=== PATIENT | male | born 1980 | race Caucasian/White ===

== ENCOUNTER 2019-04-17 15:37 | Emergency (ER) | payer OTHER ==
[2019-04-17 15:45] VITALS: PULSE 77; TEMP 98.2; BMI 28.7
[2019-04-17] MEDS ORDERED: KETOROLAC TROMETHAMINE 30 MG/1 ML VIAL IM ONE (16:07)
[2019-04-17] MEDS ORDERED: KETOROLAC TROMETHAMINE 30 MG/1 ML VIAL ONE (16:19)
[2019-04-17 16:40] LABS: BASO % 0.4 % (0-2.0); HEMATOCRIT 42.3 % (35.4-49); HEMOGLOBIN 13.7 GM/dL (11.7-16.9); LYMPH % 4.7 % (8-40); MCH 26.2 pg (25.7-33.7); MCHC 32.4 g/dl (32.0-35.9); MEAN CELL VOLUME 80.9 fl (80-96); MEAN PLT VOLUME 8.1 fl (7.5-11.1); MONO % 1.7 % (3.8-10.2); NEUT % 93.2 % (42.8-82.8); PLATELET COUNT 296 K/MM3 (134-434); RBC 5.22 M/mm3 (4.00-5.60); RDW 14.3 % (11.9-15.9); WHITE BLOOD COUNT 11.5 K/mm3 (4.0-10.0)
[2019-04-17 16:45] LABS: EPI CELLS 0.8 /HPF (0-5/HPF); HYALINE CASTS 7 /lpf (0-8); URINE APPEARANCE TURBID; URINE BACTERIA 2.2 /hpf (NEGATIVE); URINE BILIRUBIN NEGATIVE (NEGATIVE); URINE COLOR YELLOW; URINE GLUCOSE (UA) NEGATIVE (NEGATIVE); URINE KETONE 1+ (NEGATIVE); URINE LEUK ESTERASE NEGATIVE (NEGATIVE); URINE NITRITE NEGATIVE (NEGATIVE); URINE PROTEIN NEGATIVE (NEGATIVE); URINE RBC 19 /hpf (0-4); URINE UROBILINOGEN 0.2 mg/dL (0.2-1.0); URINE WBC 1 /hpf (0-5)
--- NOTE | 2019-04-17 16:49 | PDOC ---
History of Present Illness - General Chief Complaint: Pain, Acute Stated Complaint: KIDNEY STONES History Source: Patient - History of Present Illness Initial Comments: 04/17/19 16:57 39 y/o/m here for right flank pain that started at 1100 today. He states the pain radiates from his right flank to his groin. He has a history of kidney stones and his pain feels the same as his past kidney stones. He feels nauseous and has vomited multiple times, no blood in his vomit. He had Oxycodone at home which was , he took 2 pills but vomited within 20 mins of taking it. He states he has been sweating a lot today as well and almost fainted once due to the pain. He denies any chest pain, SOB, fever, cough, or other symptoms. PMHx: Asthma SHx: denies Social: denies tobacco and alcohol use Past History - Past Medical History Allergies/Adverse Reactions: Allergies Allergy/AdvReac Type Severity Reaction Status Date / Time cashew nut Allergy Verified 04/17/19 15:47 peanut Allergy Verified 04/17/19 15:47 Home Medications: Ambulatory Orders Albuterol Sulfate Inhaler - [Ventolin Hfa Inhaler -] 2 puff IH DAILY 04/17/19 Fluticasone/Vilanterol [Breo Ellipta 100-25 Mcg INH] 1 each IH DAILY 04/17/19 Ibuprofen [Motrin -] 600 mg PO TID PRN #14 tablet 04/17/19 Ondansetron HCl [Zofran] 4 mg PO TID PRN #15 tablet 04/17/19 Asthma: Yes COPD: No Kidney Stones: Yes - Suicide/Smoking/Psychosocial Hx Smoking History: Never smoked Have you smoked in the past 12 months: No Information on smoking cessation initiated: No Hx Alcohol Use: No Drug/Substance Use Hx: No Review of Systems - Review of Systems Constitutional: Yes: Chills. No: Fever HEENTM: No: Nose Congestion Respiratory: No: Cough, Shortness of Breath Cardiac (ROS): No: Chest Pain, Lightheadedness ABD/GI: Yes: Nausea, Vomiting. No: Constipated, Diarrhea Musculoskeletal: Yes: Back Pain Integumentary: No: Rash Neurological: No: Headache Endocrine: Yes: Excessive Sweating *Physical Exam - Vital Signs Last Vital Signs Temp Pulse Resp BP Pulse Ox 98.2 F 77 22 H 130/89 98 04/17/19 15:41 04/17/19 15:41 04/17/19 15:41 04/17/19 15:41 04/17/19 15:41 - Physical Exam General Appearance: Yes: Severe Distress HEENT: positive: EOMI Neck: positive: Supple. negative: Tender Respiratory/Chest: positive: Normal Breath Sounds. negative: Accessory Muscle Use, Labored Respiration Cardiovascular: positive: Regular Rhythm, Regular Rate, S1, S2 Gastrointestinal/Abdominal: positive: Normal Bowel Sounds, Tender (Tenderness to palpation over right flank and right groin ), Guarding Musculoskeletal: positive: CVA Tenderness (R). negative: CVA Tenderness (L) Extremity: positive: Normal Capillary Refill Integumentary: positive: Diaphoresis Neurologic: positive: Fully Oriented, Alert, Motor Strength 12/11 ED Treatment Course - LABORATORY CBC & Chemistry Diagram: 04/17/19 16:26 04/17/19 16:26 - RADIOLOGY Radiology Studies Ordered: Category Date Time Status SPIRAL- RENAL-STONE CT [CT] Stat CT Scan 04/17/19 16:10 Ordered - Medications Given in the ED: ED Medications Discontinued Medications Generic Name Dose Route Start Last Admin Trade Name Freq PRN Reason Stop Dose Admin Ketorolac Tromethamine 30 mg 04/17/19 16:07 04/17/19 16:30 Toradol Injection - IM 04/17/19 16:08 30 mg ONCE ONE Administration Medical Decision Making - Medical Decision Making 04/17/19 18:20 39 y/o/m here for right flank pain that started at 1100 today. He states the pain radiates from his right flank to his groin. He has a history of kidney stones and his pain feels the same as his past kidney stones. Patient was given a bolus of fluids and Toradol with significant improvement in pain. CT scan was positive for a 2-3mm stone at the level of the lower pelvis with mild hydronephrosis and diffuse hepatic steatosis. Patient's pain was much improved but complained of nausea. Patient was given Zofran with improvement of nausea. UA positive for 3+ blood. CBC shows mild WBC elevation. Patient discharged with Zofran and Motrin prescriptions and recommendations to follow up with his PCP and Urologist. *DC/Admit/Observation/Transfer Diagnosis at time of Disposition: Kidney stone - Discharge Dispostion Disposition: HOME Condition at time of disposition: Good Decision to Admit order: No - Prescriptions Prescriptions: Ibuprofen [Motrin -] 600 mg PO TID PRN #14 tablet PRN Reason: Pain Ondansetron HCl [Zofran] 4 mg PO TID PRN #15 tablet PRN Reason: Nausea - Referrals - Patient Instructions Printed Discharge Instructions: DI for Kidney Stones Additional Instructions: If you worsening pain, nausea, difficulty urinating, or other concerns return to the ER. Please follow up with your primary care doctor and urologist in the next week. - Post Discharge Activity
--- NOTE | 2019-04-17 16:53 | PDOC ---
Attending Attestation - Resident Resident Name: Jazlyn Sow - ED Attending Attestation I have performed the following: I have examined & evaluated the patient, The case was reviewed & discussed with the resident, I agree w/resident's findings & plan, Exceptions are as noted - HPI HPI: 04/17/19 16:53 39-year-old male presents with left flank pain that started 11 AM today,this pain is accompanied with nausea and vomiting. The pain radiated to his left groin - Physicial Exam PE: 04/17/19 16:53 wnwd 39 yo male w L flank pain head ncat neck supple lungs cta b/l cvs [id number] left flank pain abd nontender,no rebound,+BS skin warm and dry extremities no edema,no clubbing,no erythema neuro axox3,ambulatory - Medical Decision Making 04/17/19 16:56 ct scan spiral pending UA sent cbc,comp pmh kidney stones pt denies fever,chills,chest pain ,shortness of breath toradol for pain 04/17/19 17:32 normal bun and creatinine UA +[address] scan abd/pel: + UVJ stone 2-3mm,mild hydronephrosis, 04/17/19 18:26 pt's symptoms resolved he will followup with his physician in [place]
[2019-04-17 17:02] LABS: BILIRUBIN,TOTAL 0.3 mg/dL (0.2-1); BLOOD UREA NITROGEN 15.1 mg/dL (7-18); CALCIUM 8.7 mg/dL (8.5-10.1); CREATININE 1.2 mg/dL (0.55-1.3); POTASSIUM 4.1 mmol/L (3.5-5.1); TOT PROT 7.3 g/dl (6.4-8.2)
[2019-04-17] MEDS ORDERED: ONDANSETRON 4 MG/2 ML VIAL IVPUSH ONE (17:11)
[2019-04-17 17:44] LABS: PLATELET ESTIMATE ADEQUATE
[2019-04-17] MEDS ORDERED: ONDANSETRON 4 MG/2 ML VIAL ONE (17:51)
[2019-04-17 18:42] VITALS: BP 126/82
== END 2019-04-17 18:42 | disposition home or self-care (01) ==
LOC: JER 15:37
PROC: 3E0233Z Introduction of Anti-inflammatory into Muscle, Percutaneous Approach (ICD-10-PCS; principal; 2019-04-17)
PROC: 3E033GC Introduction of Other Therapeutic Substance into Peripheral Vein, Percutaneous Approach (ICD-10-PCS; 2019-04-17)
DX: N13.2 Hydronephrosis with renal and ureteral calculous obstruction (principal); Z87.442 Personal history of urinary calculi
CPT/HCPCS: 36415; 74176-TC; 80053; 81003; 85025; 99283-25